=== PATIENT | female | born 1960 | race Caucasian/White ===

== ENCOUNTER → 2017-11-22 11:30 | Outpatient (CLI) | payer OTHER, SELFPAY ==
--- NOTE | 2017-11-22 11:35 | PET_ITS ---
EXAMINATION: FDG PET CT INDICATIONS: A 57-year-old female with history of carcinoma of the breast presenting for restaging examination. COMPARISON EXAMINATION: None available. INDEX LESION SIZE SUV INTERPRETATION Right lobe hepatic parenchyma segment V 2.5 (max) ratio < 2.0 Quantitative criteria for viable neoplasm are not fulfilled, may warrant histopathologic investigation if index of suspicion remains intermediate to high NON-INDEX LESION SIZE SUV INTERPRETATION Aorticopulmonary window, left thoracic perihilum 2.3 (max) Quantitative criteria for viable neoplasm are not fulfilled TECHNIQUE: Following the intravenous administration of 16.32 mCi of F-18 deoxyglucose via the left antecubital fossa, multiplanar image acquisitions of the neck, chest, abdomen and pelvis to level of mid thigh, obtained at one hour post radiopharmaceutical administration contemporaneously interpreted with the current CT of the neck, chest, abdomen and pelvis to level of mid thigh, dated 11/22/17 via coregistration reveal: SERUM GLUCOSE LEVEL: 128 mg/dl. HEIGHT: 62 inches. WEIGHT: 135 lbs. FINDINGS: 1. Mild increased glucose concentration is observed in region of the aorticopulmonary window and left thoracic perihilum. The calculated maximum standard uptake value is 2.3. Quantitative criteria for viable neoplasm are not fulfilled. 2. Subtle increased glucose metabolism is demonstrated in the posterior aspect of the right lobe of the hepatic parenchyma (3.0) involving segment V generating a calculated maximum standard uptake value of 2.5 with a lesion to liver background ratio less than 2.0. 3. Normal physiologic distribution of the radiopharmaceutical is apparent in the splenic parenchyma, both renal units, bladder and visualized intestinal tract. There is uniform distribution of the radiopharmaceutical concentration compared on the cerebellar hemispheres and cerebral cortex. Diffuse intestinal tract activity is noted throughout all four quadrants of the abdominal-pelvic retroperitoneum, mesentery consistent with normal physiologic distribution of the radiopharmaceutical. Increased glucose concentration is observed in the descending thoracic, as well as abdominal aorta. Pertinent CT findings are as follows. CHEST: The right breast is surgically absent. Bilateral axillary soft tissue density with fatty hilus formation are non-glucose avid. There are no parenchymal densities-nodules demonstrated in the right-left hemithorax manifesting quantitatively significant increased glucose metabolism. ABDOMEN AND PELVIS: The gallbladder is surgically absent. There is fatty metamorphosis involving the hepatic parenchyma. Atherosclerotic calcification is defined in the abdominal aorta without evidence of dilatation, aneurysm formation. Pelvic arterial calcification is observed. Calcifications are noted in the lower pelvis contiguous to the uterus without evidence of quantitatively significant increased glucose metabolism. Right-left subcentimeter inguinal soft tissue densities are ametabolic. SKELETAL: Degenerative changes defined in the cervical, thoracic and lumbar spine demonstrate no evidence for glucose hypermetabolism. Diffuse demineralization is defined throughout the axial skeletal structures. PET/PET/CT Tumor Base -Thigh Subs IMPRESSION: 1. Increased glucose concentration observed in the right lobe of the hepatic parenchyma involving segment V does not fulfill quantitative criteria for viable neoplasm. (Anna et al, Archives of Surgery, 133:510 1998). If the index of suspicion for viable neoplasm remains intermediate to high, definitive histopathologic analysis is recommended. Well-differentiated primary and metastatic hepatic neoplasia may demonstrate false negative results with FDG PET imaging secondary to the inherent gluconeogenic properties of normal hepatocytes. (Duglas and Blake, Beth Rev Physiol 54:885, 1992). 2. Facilitated glucose concentration observed in the aorticopulmonary window and left thoracic perihilum does not fulfill quantitative criteria for viable neoplasm. (Abraham baker al, Journal of Clinical Oncology 16:2142, 1998). 3. The increase in glucose metabolism manifest in the descending thoracic, as well as abdominal aorta is commensurate with activated leukocytes associated with atherosclerotic plaque formation. (Ivette et al, Clinical Nuclear Medicine 29:93, 2004). Electronic Signature Jack Machado D.O. Electronically Signed: Jack Machado DO at 22:49 EST Tel , Service support ,
== END ==
PROVIDERS: Family Provider Family Medicine; PCP Family Medicine; Visit Provider Internal Medicine Hematology & Oncology
DX: C50.919 Malignant neoplasm of unspecified site of unspecified female breast (principal); K76.9 Liver disease, unspecified
CPT/HCPCS: 78815; 99211; A9552; G0463

== ENCOUNTER → 2018-06-17 11:35 | Outpatient (CLI) | payer OTHER, SELFPAY ==
[2018-06-14 15:49] LABS: Absolute Lymphocyte Count 2.37 X10^3/ul (0.83-4.51); Absolute Neutrophil Count 5.3 X10^3/uL (2.0-7.7); Basophil# 0.03 X10^3/uL; Basophil% 0.4 % (0-1); Eosinophil# 0.14 X10^3/uL; Eosinophils% 1.7 % (0-5); Hematocrit 46.7 % (37-47); Hemoglobin 15.5 g/dl (12.0-15.0); Lymphocyte # 2.37 X10^3/ul (4.0); Lymphocyte % 27.9 % (19-41); Mean Corp Hgb Conc 33.2 g/gl (32-36); Mean Corpuscular Hgb 27.9 pg (27.0-32.0); Mean Platelet Vol. 9.8 fl (6.2-12.0); Monocyte# 0.59 X10^3/uL; Neutrophil # 5.34 X10^3/uL (2.7-7.7); Neutrophil % 62.9 % (47-70); Platelet Count 403 K/mm3 (150-450); RBC Distribution Width SD 43.4 fl (35.1-43.9); Red Blood Count 5.56 M/mm3 (4.2-5.4); White Blood Count 8.5 K/mm3 (4.4-11.0)
[2018-06-14 15:50] LABS: POSITIVE COUNT NO; POSITIVE DIFFERENTIAL NO; POSITIVE MORPHOLOGY NO
[2018-06-14 16:26] LABS: ALB/GLOB Ratio 1.1 RATIO (0.9-2.4); AST(SGOT) 27 U/L (15-37); Alanine Aminotransfer ALT/SGPT 46 U/L (13-56); Albumin, Serum 4.3 g/dL (3.2-5.0); Alkaline Phosphatase 123 U/L (45-117); Anion Gap 14 (5-15); BUN 21 mg/dL (7-18); BUN/Creat Ratio 16.5 RATIO (10-20); Calcium,Total 9.6 mg/dL (8.5-10.1); Chloride 106 mmol/L (98-107); Creatinine, Serum 1.27 mg/dL (0.55-1.02); EST Glomerular Filtration Rate 46 mL/min (>60); Est Glom Filt Rate - Afr Amer 56 mL/min (>60); Globulin 3.9 g/dL (2.2-4.2); Glucose 187 mg/dL (74-106); Potassium 4.1 mmol/L (3.5-5.1); Protein, Total 8.2 g/dL (6.4-8.2); Sodium Level 141 mmol/L (136-145)
[2018-06-16 11:35] LABS: CA 27.29 12.9 U/mL (0.0-38.6); Carcinoembryonic Antigen 1.6 ng/mL (0.0-4.7)
--- NOTE | 2018-06-17 11:30 | MRI_ITS ---
STUDY: MRI ABDOMEN WITH AND WITHOUT CONTRAST REASON FOR EXAM: Female, 58 years old. Follow-up MRI of November 05, 2017. Hemangiomas? History of breast cancer. TECHNIQUE: Standardized fat and water weighted pulse sequences were obtained in all 3 orthogonal planes post contrast administration. 7 ml of Gadavist contrast material was administered intravenously for the contrast portion of the examination. COMPARISON: PET/CT to 2017, CT liver 11/12/2017, MRI abdomen 11/05/2017. FINDINGS: Body wall soft tissues: No acute process. Osseous structures: No acute process. Mild multilevel spondylosis. Inferior chest: Lung bases grossly clear, normal distal esophagus, normal cardiac base. Hepatobiliary: Hepatomegaly, craniocaudal right liver 19 cm. Diffuse hepatic steatosis. Multifocal patchy regions of fatty sparing. On opposed phase imaging, one can see both the patchy regions of fatty sparing, and a few small discrete nodular areas of fatty sparing. These foci exhibit mild T2 hyperintensity on diffusion-weighted imaging. These foci are inconspicuous on T1-weighted imaging. A few of these foci exhibit mild gradual enhancement following the blood pool on dynamic postcontrast imaging. The gallbladder is surgically absent. There is no biliary ductal dilatation. The common duct is nondilated. Pancreas: Normal. Spleen: Normal. Adrenal glands: Normal. Kidneys: Benign cyst of the right kidney measuring 9 mm. A few additional tiny benign-appearing nonenhancing cysts are also present, too small for characterization. Normal renal collecting systems and proximal ureters. Retroperitoneum: No mass or lymphadenopathy. Stomach and small bowel: Evaluated portions are normal. Mesentery and large bowel: Evaluated portions are normal. Vasculature: Normal. On prior MRI imaging of 11/05/2017, there were multiple small irregular oval foci in the right liver, most numerous within segment 7, varying sizes, measuring up to 1.25 cm. These were T1 hypointense, T2 mildly hyperintense, did not exhibit fat saturation, noncystic features, and exhibited gradual enhancement following the blood pool on dynamic postcontrast enhanced CT. On today's study, only a few of these foci remain, and these have become much less distinct. MRI/MRI Abd WITH and W/O Contrast IMPRESSION: Apparent resolution of the majority of the discrete enhancing foci of the right liver that were seen on prior imaging of 11/05/2017 and were also seen on the CT scan of 11/12/2017. Only a few remain, and these are small and indistinct. Differential considerations include metastatic disease with response to therapy, or perhaps transient and now resolving cholangitis. The appearance is inconsistent with hemangiomas. There are patchy areas of focal fatty sparing in the liver, which represent a distinct process. Surveillance imaging is recommended in 6 months. Contrast-enhanced MRI preferred. Depending upon clinical suspicion, a liver biopsy might be of some utility although it would be difficult to target a discrete lesion with CT guidance. Electronically Signed: Jack Olson, at 13:11 EDT Tel , Service support ,
== END ==
PROVIDERS: Family Provider Family Medicine; PCP Family Medicine; Visit Provider Internal Medicine Hematology & Oncology
DX: C50.511 Malignant neoplasm of lower-outer quadrant of right female breast (principal); E83.52 Hypercalcemia; R16.0 Hepatomegaly, not elsewhere classified
CPT/HCPCS: 36415; 74183; 80053; 82378; 85025; 86300; A9585

== ENCOUNTER → 2019-06-05 10:04 | Outpatient (CLI) | payer OTHER, SELFPAY ==
[2019-05-31 15:47] LABS: Absolute Neutrophil Count 4.3 X10^3/uL (2.0-7.7); Basophil# 0.06 X10^3/uL; Basophil% 0.8 % (0-1); Eosinophil# 0.18 X10^3/uL; Eosinophils% 2.5 % (0-5); Hematocrit 45.6 % (37-47); Hemoglobin 14.7 g/dL (12.0-15.0); Lymphocyte % 28.8 % (19-41); Mean Corp Hgb Conc 32.2 g/dL (32-36); Mean Corpuscular Hgb 28.3 pg (27.0-32.0); Mean Corpuscular Volume 87.7 fL (81-99); Mean Platelet Vol. 9.5 fl (6.2-12.0); Monocyte# 0.64 X10^3/uL; Monocyte% 8.8 % (0-10); NRBC Flagged by Analyzer 0 % (0-5); Neutrophil # 4.27 X10^3/uL (2.7-7.7); Neutrophil % 58.7 % (47-70); Platelet Count 427 K/mm3 (150-450); RBC Distribution Width CV 13.2 % (11.6-14.6); RBC Distribution Width SD 42.5 fl (35.1-43.9); White Blood Count 7.3 K/mm3 (4.4-11.0)
[2019-05-31 16:35] LABS: AST(SGOT) 32 U/L (15-37); Alanine Aminotransfer ALT/SGPT 44 U/L (13-56); Albumin, Serum 3.9 g/dL (3.2-5.0); Alkaline Phosphatase 114 U/L (45-117); Anion Gap 9 (5-15); BUN 21 mg/dL (7-18); Chloride 106 mmol/L (98-107); EST Glomerular Filtration Rate 41 mL/min (>60); Est Glom Filt Rate - Afr Amer 50 mL/min (>60); Glucose 188 mg/dL (74-106); Potassium 4.1 mmol/L (3.5-5.1); Protein, Total 7.9 g/dL (6.4-8.2); Sodium Level 139 mmol/L (136-145)
[2019-06-02 13:39] LABS: CA 27.29 17.2 U/mL (0.0-38.6); Carcinoembryonic Antigen 1.5 ng/mL (0.0-4.7)
--- NOTE | 2019-06-05 10:24 | MRI_ITS ---
STUDY: MRI ABDOMEN WITH AND WITHOUT CONTRAST REASON FOR EXAM: Female, 58 years old. Liver mass, abdominal pain, history of breast cancer. TECHNIQUE: Standardized fat and water weighted pulse sequences were obtained in all 3 orthogonal planes post contrast administration. 13 ml of Dotarem contrast material was administered intravenously for the contrast portion of the examination. COMPARISON: MRI abdomen 06/17/2018, PET/CT to 2017. FINDINGS: Body wall soft tissues: No acute process. Osseous structures: No acute process. Mild lumbar spondylosis without stenosis. No apparent lytic or blastic osseous lesions. Inferior chest: No acute process. Spleen: Normal. Adrenal glands: Normal. Urinary tract: Stable benign right renal cysts. Retroperitoneum: No mass or lymphadenopathy. Stomach: Normal. Small and large bowel: Evaluated portions exhibit no acute process. Pancreas: Normal. Hepatobiliary: Gallbladder absent. Nondilated biliary tree. Mild hepatomegaly, craniocaudal right liver 18 cm. On opposed phase imaging there is generalized signal dropout within the liver consistent with the presence of hepatic steatosis. In the dome of the right liver, segment 8, series 4 image 5, there is a 3.5 mm T2 hyperintense, T1 hyperintense enhancing focus was clearly visible on the early arterial phase of contrast, most consistent with a small flash fill hemangioma. In the right liver segment 7, series 4 image 6, subserosal at the margin of the liver there is a T1 hypointense, T2 hyperintense 5.4 mm focus without contrast enhancement. On diffusion-weighted imaging segment 8, series 10 image 1 there is a 6.1 mm hyperintense focus not observed on any other sequence. This focus is unchanged compared to prior MRI of 06/17/2018. On diffusion-weighted imaging segment 6, series 10 image 41, there is a 4 mm hyperintense focus not observed on any other sequence. This focus is unchanged compared to prior MRI of 06/17/2018. Several additional anomalies seen on prior diffusion-weighted imaging of 06/17/2018 are not apparent on today's study. The patchy scattered heterogeneous features that were present within portions of the liver on postcontrast imaging of 06/17/2018 are not apparent on today's study. MRI/MRI Abd WITH and W/O Contrast IMPRESSION: 1. Hepatic steatosis with mild hepatomegaly. 2. 3.5 mm focus at the dome of the right liver segment 8 was not apparent on prior imaging, possibly not seen on prior imaging due to technique differences. On today's study this focus has imaging features favoring a tiny flash fill hemangioma. 3. T2 hyperintense, T1 hypointense 5.4 mm nonenhancing focus in the right liver segment 7 was not clearly apparent on prior imaging. Nonspecific. 4. There are 2 tiny diffusion hyperintense foci in the right liver which are stable compared to imaging of 06/17/2017. 5. Multiple heterogeneous scattered signal anomalies that were seen within the liver on prior MRI of 06/17/2018 have resolved. 6. There are no definitively suspicious lesions within the liver at this time. 7. Follow-up surveillance MRI imaging is recommended in 6 months to one year utilizing the same technique. Electronically Signed: Jack Olson MD at 13:27 EDT Tel , Service support ,
== END ==
PROVIDERS: Family Provider Family Medicine; PCP Family Medicine; Referring Provider Internal Medicine Hematology & Oncology; Visit Provider Internal Medicine Hematology & Oncology
DX: C50.511 Malignant neoplasm of lower-outer quadrant of right female breast (principal); R10.9 Unspecified abdominal pain; R16.0 Hepatomegaly, not elsewhere classified
CPT/HCPCS: 36415; 74183; 80053; 82378; 85025; 86300; A9575